=== PATIENT | male | born 1955 | race Caucasian/White ===

== ENCOUNTER 2016-09-10 14:18 | Emergency (ER) | payer OTHER, BC ==
--- NOTE | 2016-09-10 14:31 | PHYS DOC ---
Adult General Chief Complaint Chief Complaint: CHEMICAL EXPOSURE [facility] HPI Patient is a 61 year old male who presents with possible inhalation of an acid while at work. 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 Patient started coughing and was sent in the emergency room by work for further evaluation. Patient states he feels a little short of breath however he is not hypoxic is not having any significant difficulty breathing. Patient denies any chest pain. Patient denies any other symptoms. Pertinent exam findings: Lungs clear all station bilaterally ED course: Patient is seen upon arrival to emergency room two-view chest x-ray was ordered 1535: Discussed the case with poison control who recommended a chest x-ray and if wheezing treat with steroids and albuterol 1546: Patient is reevaluated and is asymptomatic denies any shortness of breath or wheezing or chest pain Pertinent findings: X-ray of the chest unremarkable MMD: After reviewing the chart, CC/HPI/PMH, PE, CXR do not believe the patient had a significant inhalant exposure warranting further workup and admission at this time. The patient's exposure was this morning at 10 AM and his work as a reason why he was sent to the emergency room since the patient is having no symptoms of shortness of breath, wheezing or chest pain. Patient elected go home. Patient is stable to be discharged. Discussed case with poison control who are comfortable discharging him if asymptomatic. Additional verbal discharge injections were provided to the patient and that if symptoms get worse or any new symptoms arise that are worrisome to the patient he is return the emergency room immediately. Review of Systems Review of Systems Constitutional: Denies fever or chills [] Eyes: Denies change in visual acuity, redness, or eye pain [] HENT: Denies nasal congestion or sore throat [] Respiratory: Shortness of breath Cardiovascular: No additional information not addressed in HPI [] GI: Denies abdominal pain, nausea, vomiting, bloody stools or diarrhea [] : Denies dysuria or hematuria [] Musculoskeletal: Denies back pain or joint pain [] Integument: Denies rash or skin lesions [] Physical Exam Physical Exam Constitutional: Well developed, well nourished, no acute distress, non-toxic appearance. [] HENT: Normocephalic, atraumatic, bilateral external ears normal, oropharynx moist, no oral exudates, nose normal. [] Eyes: PERRLA, EOMI, conjunctiva normal, no discharge. [] Neck: Normal range of motion, no tenderness, supple, no stridor. [] Cardiovascular:Heart rate regular rhythm, no murmur [] Lungs & Thorax: Bilateral breath sounds clear to auscultation [] Abdomen: Bowel sounds normal, soft, no tenderness, no masses, no pulsatile masses. [] Skin: Warm, dry, no erythema, no rash. [] Back: No tenderness, no CVA tenderness. [] Extremities: No tenderness, no cyanosis, no clubbing, ROM intact, no edema. [] Neurologic: Alert and oriented X 3, normal motor function, normal sensory function, no focal deficits noted. [] Psychologic: Affect normal, judgement normal, mood normal. [] EKG EKG [] Radiology/Procedures Radiology/Procedures Chest x-ray two-view NAD Course & Med Decision Making Course & Med Decision Making Pertinent Labs and Imaging studies reviewed. (See chart for details) [] Dragon Disclaimer Dragon Disclaimer This chart was dictated in whole or in part using Voice Recognition software in a busy, high-work load, and often noisy Emergency Department environment. It may contain unintended and wholly unrecognized errors or omissions. Departure Departure: Impression: Primary Impression: Pneumonitis due to inhaled substance Disposition: 01 HOME, SELF-CARE Condition: IMPROVED Referrals: PCP,NO (PCP) Patient Instructions: Inhalation Injury-Brief Additional Instructions: Please follow-up with her family doctor one to 2 days ESTHELA OSBORNE DO September 10, 2016 14:31
--- NOTE | 2016-09-10 14:45 | RAD ---
Chest, 2 views, 09/10/2016: History: Cough, chemical exposure The heart size and pulmonary vascularity are normal. No pulmonary infiltrates are seen. There is no evidence of pleural fluid. IMPRESSION: No acute cardiopulmonary abnormality is detected.
[2016-09-10 15:55] VITALS: BP 120/81
== END 2016-09-10 16:00 | disposition home or self-care (01) ==
LOC: ER 14:18
DX: T59.891A Toxic effect of other specified gases, fumes and vapors, accidental (unintentional), initial encounter (principal); J68.0 Bronchitis and pneumonitis due to chemicals, gases, fumes and vapors; Y92.69 Other specified industrial and construction area as the place of occurrence of the external cause
CPT/HCPCS: 71020; 99284-25

== ENCOUNTER → 2017-11-05 | Outpatient (CLI) | payer OTHER, BC ==
--- NOTE | 2017-11-05 12:04 | RAD ---
INDICATION: Pain after hitting elbow at work. TECHNIQUE: 3 views of the right elbow contains 4 images. No comparison is available. FINDINGS: There is soft tissue swelling overlying the olecranon. Small density at the tip of the olecranon process could represent small avulsion fracture but is more likely a small spur. There is no joint effusion/displacement of fat pads. There is no dislocation. IMPRESSION: Linear density along the olecranon with overlying soft tissue swelling. This could represent small avulsion fracture or spur. Electronically signed by: Gen Antony MD (11/05/2017 12:01 PM) [facility]
== END | disposition home or self-care (01) ==
LOC: PMG 11:07
PROVIDERS: ATTEND Neuromusculoskeletal Medicine & OMM
DX: M79.89 Other specified soft tissue disorders (principal)
CPT/HCPCS: 73080